=== PATIENT | female | born 1985 | race Caucasian/White ===

== ENCOUNTER 2020-09-11 18:21 | Emergency (ER) | payer OTHER, MEDICAID ==
[~2020-09-11] VITALS: Ht 165.1 cm; Wt 61.2 kg
[~2020-09-11 18:21] MED LIST: ADDERALL 30 MG30 MG PO; ALPRAZOLAM; AMBIEN; BIRTH CONTROL; DEPAKOTE; EFFEXOR XR75 MG; HYDROXYZINE HCL25 M2; IBUPROFEN 800800 MG PO; VISTARIL 25 MG25 M1 PO; XANAX 0.25 MG0.25 MG PO; XANAX 0.5 MG0.5 MG PO; XANAX 1 MG TABLE1 MG PO; XANAX1 MG PO; [UNRECOGNIZED DRUG - REMARK]
[2020-09-11] MEDS ORDERED: LATUDA20 MG PO (18:34)
[2020-09-11] MEDS ORDERED: VALIUM2 MG PO (18:34)
[2020-09-11 19:32] LABS: ABSOLUTE BASOPHILS 0.1 thou/uL (0.0-0.2); ABSOLUTE EOSINOPHILS 0.2 thou/uL (0.0-0.7); ABSOLUTE LYMPHOCYTES 2.9 thou/uL (0.8-5.3); ABSOLUTE MONOCYTES 0.5 thou/uL (0.0-1.2); ABSOLUTE NEUTROPHILS 4.5 thou/uL (1.6-8.1); BASOPHILS 0.9 %; EOSINOPHILS 2.6 %; HEMOGLOBIN 13.6 gm/dL (12.0-15.0); LYMPHOCYTES 35.2 %; MCH 31.1 pg (26.0-34.0); MCHC 34.8 g/dL (28.0-37.0); MCV 89.4 fL (80.0-100.0); MONOCYTES 6.6 %; MPV 6.7 fl. (7.2-11.1); NUCLEATED RBCS 0 /100WBC; PLATELET COUNT* 315 thou/uL (150-400); POLYS 54.7 %; RBC 4.36 mil/uL (4.20-5.00); RDW-CV 12.4 % (10.5-14.5); WBC 8.2 thou/uL (4.0-11.0)
[2020-09-11 19:34] LABS: CALCIUM 8.4 mg/dL (8.5-10.1); CREATININE 0.8 mg/dL (0.6-1.3); POTASSIUM 3.6 mmol/L (3.5-5.1)
[2020-09-11 19:39] LABS: ALBUMIN 3.7 g/dL (3.4-5.0); TOTAL BILIRUBIN 0.2 mg/dL (<0.1-1.0); TOTAL PROTEIN 7.1 g/dL (6.4-8.2)
[2020-09-11 19:56] LABS: URINE BILIRUBIN NEGATIVE (Negative); URINE BLOOD 1+ (Negative); URINE CLARITY SL CLOUDY; URINE COLOR YELLOW; URINE GLUCOSE-RANDOM NEGATIVE (Negative); URINE KETONES NEGATIVE (Negative); URINE LEUKOCYTES-REFLEX TRACE (Negative); URINE PROTEIN NEGATIVE (Negative); URINE SPECIFIC GRAVITY >= 1.030 (1.005-1.030); URINE UROBILINOGEN 0.2 E.U./dl (0.2-1.0)
[2020-09-11 19:57] LABS: URINE NITRITE-REFLEX POSITIVE (Negative)
[2020-09-11 20:13] LABS: MUCUS >6 Heavy strn/LPF (None Seen)
[2020-09-11 20:14] LABS: CASTS None Seen /LPF (None Seen); CRYSTALS None Seen /LPF (None Seen); SQUAMOUS >10 Many /LPF (0-3)
[2020-09-11 20:15] LABS: BACTERIA-REFLEX >30 Many /HPF (None Seen); URINE RBC 0-2 Rare /HPF (0-2)
[2020-09-11 20:55] LABS: AMP/METHAMP POSITIVE (Negative); BARBITURATES Negative (Negative); BENZODIAZEPINES POSITIVE (Negative); COCAINE POSITIVE (Negative); METHADONE Negative (Negative); OPIATES Negative (Negative); PCP Negative (Negative); THC POSITIVE (Negative)
[2020-09-11] MEDS ORDERED: DOXYCYCLINE 10100 MG PO (20:56)
[2020-09-11] MEDS ORDERED: DIFLUCAN200 MG PO (20:56)
[2020-09-11 21:23] VITALS: BP 114/74
--- NOTE | 2020-09-12 11:11 | EKG ---
[place] [address] ELECTROCARDIOGRAM REPORT Name: RON WHALEN GELY Room: [facility]#: [id number] Admission: 09/11/20 Attend Phys: Discharge: 09/11/20 Date of : 87 Date of Service: 09/11/20 182 Report #: [id number] THIS REPORT FOR: //name// [facility] ED Test Date: 2020-09-11 Test Time: 18:25:49 Pat Name: RON WHALEN Department: Room: Gender: F Project Eng: : 1985 Requested By: Miriam Randhawa Order Number: [id number] MD: Favian Arshad Measurements Intervals [place] Rate: 113 P: 51 DC: 122 QRS: 63 QRSD: 87 T: 56 QT: 322 QTc: 442 Interpretive Statements Sinus tachycardia Compared to ECG 09/20/2015 13:59:18 No significant changes Electronically Signed On 09-12-2020 11:11:07 CDT by Favian Arshad [email or web address] <ELECTRONICALLY SIGNED> By: Favian Arshad MD, [facility] 09/12/20 1111 1825 1825 Favian Arshad MD, [facility] /EPI
== END 2020-09-11 21:23 | disposition home or self-care (01) ==
LOC: M.ERS 18:21
PROVIDERS: Physician Assistant
DX: F41.9 Anxiety disorder, unspecified (principal); Z20.822 Contact with and (suspected) exposure to COVID-19; N39.0 Urinary tract infection, site not specified; A59.9 Trichomoniasis, unspecified; M06.9 Rheumatoid arthritis, unspecified; F17.210 Nicotine dependence, cigarettes, uncomplicated; Z88.2 Allergy status to sulfonamides; Z79.899 Other long term (current) drug therapy

== ENCOUNTER 2021-03-28 04:44 | Emergency (ER) | payer MEDICAID ==
[~2021-03-28] VITALS: Ht 165.1 cm; Wt 56.7 kg
[~2021-03-28 04:44] MED LIST changes: +DIFLUCAN200 MG PO; +DOXYCYCLINE 10100 MG PO; +LATUDA20 MG PO; +VALIUM2 MG PO
[2021-03-28 05:36] VITALS: BP 123/91
[2021-03-28 05:36] LABS: URINE BILIRUBIN NEGATIVE (Negative); URINE BLOOD TRACE (Negative); URINE CLARITY SL CLOUDY; URINE COLOR YELLOW; URINE GLUCOSE-RANDOM NEGATIVE (Negative); URINE KETONES NEGATIVE (Negative); URINE LEUKOCYTES NEGATIVE (Negative); URINE NITRITE POSITIVE (Negative); URINE PROTEIN NEGATIVE (Negative); URINE UROBILINOGEN 0.2 E.U./dl (0.2-1.0)
[2021-03-28 06:06] LABS: BACTERIA None Seen /HPF (None Seen); CASTS None Seen /LPF (None Seen); CRYSTALS None Seen /LPF (None Seen); MUCUS None Seen strn/LPF (None Seen); SQUAMOUS NONE SEEN /LPF (0-3); URINE RBC 3-10 Few /HPF (0-2); URINE WBC None Seen /HPF (0-5)
[2021-03-28 06:08] LABS: AMP/METHAMP POSITIVE (Negative); BARBITURATES Negative (Negative); BENZODIAZEPINES POSITIVE (Negative); COCAINE Negative (Negative); METHADONE Negative (Negative); OPIATES Negative (Negative); PCP Negative (Negative); THC POSITIVE (Negative)
--- NOTE | 2021-03-28 10:12 | EKG ---
[place] [address] ELECTROCARDIOGRAM REPORT Name: MARLEERON Room: [facility]#: [id number] Admission: 03/28/21 Attend Phys: Discharge: 03/28/21 Date of : 87 Date of Service: 03/28/21511 Report #: [id number] THIS REPORT FOR: //name// [facility] ED Test Date: 2021-03-28 Test Time: 05:12:28 Pat Name: RON WHALEN Department: Room: Gender: F Home Aid: : 1985 Requested By: Salena Suarez Order Number: [id number] MD: Favian Arshad Measurements Intervals [place] Rate: 106 P: 71 NV: 131 QRS: 78 QRSD: 85 T: 65 QT: 347 QTc: 461 Interpretive Statements Sinus tachycardia Compared to ECG 09/11/2020 18:25:49 No significant changes Electronically Signed On 03-28-2021 10:11:52 CONVEYOR MONITOR by Favian Arshad [email or web address] <ELECTRONICALLY SIGNED> By: Favian Arshad MD, [facility] 03/28/21 1011 1 1 Favian Arshad MD, [facility] /EPI
== END 2021-03-28 05:38 | disposition left against medical advice (07) ==
LOC: M.ERS 04:44
PROVIDERS: Personal Emergency Response Attendant
DX: T40.411A Poisoning by fentanyl or fentanyl analogs, accidental (unintentional), initial encounter (principal); F41.0 Panic disorder [episodic paroxysmal anxiety]; F10.920 Alcohol use, unspecified with intoxication, uncomplicated; F32.9 Major depressive disorder, single episode, unspecified; M06.9 Rheumatoid arthritis, unspecified; F17.210 Nicotine dependence, cigarettes, uncomplicated; Z88.2 Allergy status to sulfonamides; Z90.49 Acquired absence of other specified parts of digestive tract; Y92.89 Other specified places as the place of occurrence of the external cause